=== PATIENT | female | born 1995 | race Caucasian/White ===

== ENCOUNTER 2018-10-05 15:56 | Emergency (ER) | payer BC, OTHER ==
--- NOTE | 2018-10-05 19:50 | EDM.PDOC ---
ED HPI GENERAL MEDICAL PROBLEM - General Chief Complaint: Upper Extremity Injury/Pain Stated Complaint: MAY HAVE BROKEN HAND [id number] Time Seen by Provider: 10/05/18 19:30 Source of Information: Reports: Patient, Family, RN, RN Notes Reviewed History Limitations: Reports: No Limitations - History of Present Illness INITIAL COMMENTS - FREE TEXT/NARRATIVE: Pt to the ER with c/o right hand pain, possible fracture. Patient states she was playing at the park with her children when she fell and tried to catch herself. Able to wiggle fingers, but painful. CMS intact. Onset: Today, Sudden Treatments ROOF BOLTER: Reports: Other (see below) Other Treatments ROOF BOLTER: none Right Hand Pain Score (Numeric/FACES): 8 - Related Data Allergies Allergy/AdvReac Type Severity Reaction Status Date / Time No Known Allergies Allergy Verified 10/05/18 16:57 Home Meds: Home Meds . [No Known Home Meds] 10/05/18 [History] Past Medical History [employer] History: Reports: - Past Surgical History HEENT Surgical History: Reports: Other (See Below) Other HEENT Surgeries/Procedures: wisdom teeth removed. surgical repair of nasal fracture Social & Family History - Family History Family Medical History: Noncontributory - Tobacco Use Smoking Status *Q: Light Tobacco Smoker Years of Tobacco use: 5 Packs/Tins Daily: 0 - Caffeine Use Caffeine Use: Reports: Soda, Tea Other Caffeine Use: decaf. tea - Recreational Drug Use Recreational Drug Use: No Review of Systems - Review of Systems Review Of Systems: ROS reveals no pertinent complaints other than HPI. ED EXAM, GENERAL - Physical Exam Exam: See Below Exam Limited By: No Limitations General Appearance: Alert, WD/WN, No Apparent Distress Eye Exam: Bilateral Eye: EOMI, Normal Inspection Ears: Normal External Exam, Hearing Grossly Normal Nose: Normal Inspection Throat/Mouth: Normal Inspection, Normal Voice, No Airway Compromise Head: Atraumatic, Normocephalic Neck: Normal Inspection, Supple, Non-Tender, Full Range of Motion Respiratory/Chest: No Respiratory Distress, Lungs Clear, Normal Breath Sounds, No Accessory Muscle Use, Chest Non-Tender Cardiovascular: Normal Peripheral Pulses, Regular Rate, Rhythm, No Edema, No Gallop, No JVD, No Murmur, No Rub Peripheral Pulses: 2+: Radial (L), Radial (R) GI/Abdominal: Normal Bowel Sounds, Soft, Non-Tender (Female) Exam: Deferred Rectal (Female) Exam: Deferred Back Exam: Normal Inspection, Full Range of Motion, NT Extremities: Arm Pain (right hand), Other (Swelling and ecchymosis over the right 5th metacarpal) Neurological: Alert, Oriented, CN II-XII Intact, Normal Cognition, Normal Gait, Normal Reflexes, No Motor/Sensory Deficits Psychiatric: Normal Affect, Normal Mood Skin Exam: Warm, Dry, Ecchymosis (RIght dorsal hand, over 5th metacarpal) Lymphatic: No Adenopathy ED TRAUMA EXTREMITY PROCEDURES - Splinting Right Upper Extremity Splint Site: right hand Pre-Procedure NV Status: Normal Post-Procedure NV Status: Normal Splint Material: Fiberglass Splint Design: Volar, Boxer Splint Applied & Form Fitted By: Provider Provider Post-Splint Application NV Check: NV Status Normal, Good Position Complications: No Course - Vital Signs Last Recorded V/S: Last Vital Signs Temp 98.0 F 10/05/18 16:50 Pulse 80 10/05/18 20:01 Resp 16 10/05/18 20:01 BP 129/82 10/05/18 20:01 Pulse Ox 99 10/05/18 20:01 - Radiology Interpretation Free Text/Narrative:: Right had xray: FINDINGS: Bones/joints: There is impacted and mildly angulated fracture through the distal aspect of fifth metacarpal Soft tissues: Normal. IMPRESSION: Boxer's fracture of the fifth metacarpal Thank you for allowing us to participate in the care of your patient. Dictated and Authenticated by: Eagle Zacarias MD 10/05/2018 7:09 PM Central Time ([place] & [place]) See rad report Departure - Departure Time of Disposition: 19:48 Disposition: Home, Self-Care 01 Condition: Fair Clinical Impression: Fracture of metacarpal bone Qualifiers: Encounter type: initial encounter Metacarpal bone: fifth Fracture type: closed Metacarpal location: base Fracture alignment: nondisplaced Laterality: right Qualified Code(s): S62.346A - Nondisplaced fracture of base of fifth metacarpal bone, right hand, initial encounter for closed fracture - Discharge Information *PRESCRIPTION DRUG MONITORING PROGRAM REVIEWED*: No *COPY OF PRESCRIPTION DRUG MONITORING REPORT IN PATIENT JAXON: No Instructions: Cast or Splint Care, Adult, [id number], Metacarpal Fracture, [id number] Referrals: PCP,None [Primary Care Provider] - Forms: ED Department Discharge Additional Instructions: Elevate as tolerated Ice as tolerated May use Tylenol and/or Ibuprofen as directed for pain Follow up with Ortho next week
== END 2018-10-05 20:00 | disposition home or self-care (01) ==
LOC: DL.ED 15:56
DX: S62.346A Nondisplaced fracture of base of fifth metacarpal bone, right hand, initial encounter for closed fracture (principal); F17.200 Nicotine dependence, unspecified, uncomplicated; W19.XXXA Unspecified fall, initial encounter
CPT/HCPCS: 29125; 73130-RT; 99283-25